=== PATIENT | male | born 1960 | race Asian ===

== ENCOUNTER 2023-09-15 19:15 | Emergency (ER) | payer OTHER ==
[~2023-09-15] VITALS: Ht 167.6 cm; Wt 86.6 kg
[~2023-09-15 19:15] MED LIST: ASPI-1393 PO; IBUP-1969 PO; LIDO1ADH22 TP; LIP20 PO; LISI20TA30 PO; PRO40 PO; TAMS0.4C96 PO; THEO200C4 PO
[2023-09-15 19:39] VITALS: BP_SYST 158; PULSE 63; RESP 20; TEMP 97.2; O2SAT 98
[2023-09-15 20:09] LABS: BASOPHILS % (AUTO) 0.3 % (0.0-2.0); EOSINOPHILS # (AUTO) 0.1 K/uL (0.0-0.4); EOSINOPHILS % (AUTO) 1.9 % (0.0-4.0); HEMATOCRIT 42.6 % (36-54); LYMPHOCYTES # (AUTO) 2.6 K/uL (1.0-5.5); LYMPHOCYTES % (AUTO) 40.5 % (20.5-51.5); MEAN CORPUSCULAR HEMOGLOBIN 30 pg (27-31); MEAN CORPUSCULAR HGB CONC 33 % (32-36); MEAN CORPUSCULAR VOLUME 93 fL (79.0-98.0); MONOCYTES # (AUTO) 0.4 K/uL (0.0-1.0); NEUTROPHILS # (AUTO) 3.2 K/uL (1.8-7.7); NEUTROPHILS % (AUTO) 50.3 % (40.0-70.0); PLATELET COUNT (AUTO) 223 K/uL (130-430); RED CELL DISTRIBUTION WIDTH 13.7 % (9.0-15.0); WHITE BLOOD COUNT (AUTO) 6.4 K/uL (4.8-10.8)
[2023-09-15 20:26] LABS: ANION GAP 7 (5-15); CARBON DIOXIDE 31 mmol/L (23-29); CHLORIDE 105 mmol/L (98-107); CREATININE 1.01 mg/dL (0.55-1.30); GFR AFRICAN AMERICAN 96 mL/min (>90); GLUCOSE 122 mg/dL (74-106); POTASSIUM 4.3 mmol/L (3.5-5.1); SODIUM SERUM 143 mmol/L (136-145); UREA NITROGEN, BLOOD 14 mg/dL (8-21)
[2023-09-15 20:33] LABS: ALANINE AMINOTRANSFERASE 25 U/L (12-78); ASPARTATE AMINOTRANSFERASE 19 U/L (10-37); BILIRUBIN,DIRECT 0.1 mg/dL (0.0-0.3); CHOLESTEROL 181 mg/dL (<200); HDL CHOLESTEROL 58 mg/dL (>45); TOTAL BILIRUBIN 0.4 mg/dL (0.0-1.0); TOTAL PROTEIN, SERUM 7.8 g/dL (6.4-8.3); TRIGLYCERIDES 125 mg/dL (30-150)
[2023-09-15 20:37] LABS: GFR NON AFRICAN-AMERICAN 79 mL/min (>90)
[2023-09-15 20:46] LABS: INR 0.9 (0.80-1.20); PROTHROMBIN TIME 9.5 SECS (9.5-12.5)
[2023-09-15] MEDS ORDERED: ASPIRIN 81 MG TABLET(ECOTRIN) PO ONE (21:15)
[2023-09-15 21:44] LABS: HEMOGLOBIN A1C 5.76 % (<5.7)
[2023-09-15 21:58] LABS: BARBITURATE, URINE NEGATIVE (NEG <=200); BENZODIAZEPINE, URINE NEGATIVE (NEG <=150); CANNABINOID, URINE NEGATIVE (NEG <=50); COCAINE, URINE NEGATIVE (NEG <=150); METHAMPHETAMINES SCREEN,URINE NEGATIVE (NEG <=500); OPIATE, URINE NEGATIVE (NEG <=100); PHENCYCLIDINE SCREEN,URINE NEGATIVE (NEG <=25); UR TRICYCLIC ANTIDEPRESSANTS NEGATIVE (NEG <=300); URINE AMPHETAMINE NEGATIVE (NEG <=500); URINE METHADONE NEGATIVE (NEG <=200); URINE OXYCODONE SCREEN NEGATIVE (NEG <=100); URINE PROPOXYPHENE SCREEN NEGATIVE (NEG <=300)
[2023-09-15] MEDS ORDERED: ASPI-1393 PO (22:10)
[2023-09-15 22:30] VITALS: BP_SYST 148; PULSE 58; RESP 20; TEMP 98.1; O2SAT 96
== END 2023-09-15 22:30 | disposition home or self-care (01) ==
LOC: SED 19:15
DX: G45.9 Transient cerebral ischemic attack, unspecified (principal); R51.9 Headache, unspecified; R42 Dizziness and giddiness; I10 Essential (primary) hypertension; Z79.899 Other long term (current) drug therapy
CPT/HCPCS: 36415; 70450-TC; 70496; 70498; 71045; 76376; 80048; 80061; 80076; 80307; 83037; 84484; 85025; 85610-TC; 85730-TC; 86886; 86900; 86901; 93005; 99291; 99292